=== PATIENT | male | born 1990 | race Caucasian/White ===

== ENCOUNTER → 2018-09-25 | Outpatient (CLI) | payer BC | LOC: COL.RAD 08:30 | DX: C62.11 Malignant neoplasm of descended right testis (principal); C78.01 Secondary malignant neoplasm of right lung; Z95.828 Presence of other vascular implants and grafts | CPT/HCPCS: Q9967 ==

== ENCOUNTER → 2019-01-23 | Outpatient (CLI) | payer BC | LOC: COL.RAD 13:43 | DX: R91.8 Other nonspecific abnormal finding of lung field (principal); Z95.9 Presence of cardiac and vascular implant and graft, unspecified | CPT/HCPCS: Q9967 ==

== ENCOUNTER → 2019-04-05 | Outpatient (CLI) | payer BC | LOC: COL.RAD 11:30 | DX: C62.91 Malignant neoplasm of right testis, unspecified whether descended or undescended (principal); C78.01 Secondary malignant neoplasm of right lung; R91.1 Solitary pulmonary nodule; Z90.79 Acquired absence of other genital organ(s) | CPT/HCPCS: Q9967 ==